=== PATIENT | male | born 1940 | race Native Hawaiian/Other Pacific Islander ===

== ENCOUNTER 2017-01-13 13:00 | Inpatient (IN) | payer OTHER ==
[~2017-01-13] VITALS: Ht 176.5 cm; Wt 53.3 kg
[~2017-01-13 13:00] MED LIST: ADVAIR HF2 IN; ALBU90AE13 INH; AMIO200T14 PO; ASA LOW DOSE81 MG PO; ATROVENT NAS0.06 %; CARV6.25 PO; CETIRIZINE5 MG PO; DIGOXIN0.25 MG PO; DILTIAZEM HCL120 M2 PO; DILTIAZEM240 M1 PO; DOCU100C10 PO; FLOVENT HFA110 MCG IN; IMDUR30 MG PO; LIPITOR10 MG PO; LISI5TAB10 PO; NEXIUM40 M1 PO; PILOCARPINE5 MG PO; TIOTCAP2 INH; TUDORZA PR400 MG/ACT IN; WARF4TAB7 PO; WARF7.5T5 PO; WARFARIN5 MG PO
[2017-01-13 21:57] VITALS: BP 139/66; TEMP 98.2; Ht 176.5 cm; Wt 53.3 kg
[2017-01-14 06:55] LABS: PLATELET COUNT 394 K/uL (142-355)
[2017-01-14 07:51] LABS: POTASSIUM 4.5 mmol/L (3.6-5.2); SODIUM 133 mmol/L (136-145)
[2017-01-14 08:00] VITALS: BP 130/50; TEMP 97.8
[2017-01-14 08:00] LABS: PARTIAL THROMBOPLASTIN TIME 26.1 SECONDS (24.5-33.6)
[2017-01-14 08:10] VITALS: BP 110/48
[2017-01-14 20:12] VITALS: BP 134/71; TEMP 97.8
[2017-01-15 07:59] VITALS: BP 131/65; TEMP 98.1
[2017-01-15 20:28] VITALS: BP 149/74; TEMP 98.1
[2017-01-16 08:00] VITALS: BP 107/57; TEMP 98
[2017-01-16 20:00] VITALS: BP 133/67; TEMP 97.9
[2017-01-17 08:00] VITALS: BP 109/58; TEMP 98
[2017-01-17 20:09] VITALS: BP 158/63; TEMP 98.1
[2017-01-18 08:00] VITALS: BP 129/70; TEMP 97.9
[2017-01-18 20:00] VITALS: BP 123/60; TEMP 98.1
[2017-01-19 08:00] VITALS: BP 111/58; TEMP 98.6
[2017-01-19 20:36] VITALS: BP 104/50; TEMP 97.8
[2017-01-20 08:00] VITALS: BP 106/52; TEMP 97.8
[2017-01-20 20:19] VITALS: BP 124/65; TEMP 98
[2017-01-21 04:33] LABS: PLATELET COUNT 329 K/uL (142-355)
[2017-01-21 05:02] LABS: PARTIAL THROMBOPLASTIN TIME 27.2 SECONDS (24.5-33.6)
[2017-01-21 05:04] LABS: POTASSIUM 4.8 mmol/L (3.6-5.2); SODIUM 129 mmol/L (136-145)
[2017-01-21 20:00] VITALS: BP 115/61; TEMP 98.3
[2017-01-22 08:00] VITALS: BP 100/52; TEMP 97.9
[2017-01-22 20:00] VITALS: BP 125/62; TEMP 98.2
== END 2017-01-23 16:00 | disposition home or self-care (01) | DRG 641 ==
LOC: MED/SURG 13:00
PROVIDERS: ADMIT Family Medicine
DX: R62.7 Adult failure to thrive (principal); E46 Unspecified protein-calorie malnutrition; R53.1 Weakness; R13.12 Dysphagia, oropharyngeal phase; I10 Essential (primary) hypertension; E11.9 Type 2 diabetes mellitus without complications; Z86.73 Personal history of transient ischemic attack (TIA), and cerebral infarction without residual deficits; K31.84 Gastroparesis; F03.90 Unspecified dementia, unspecified severity, without behavioral disturbance, psychotic disturbance, mood disturbance, and anxiety; G47.09 Other insomnia; L89.212 Pressure ulcer of right hip, stage 2
CPT/HCPCS: 36415; 80053; 85027; 85610; 85730; 94760

== ENCOUNTER 2017-03-02 10:37 | Outpatient (CLI) | payer OTHER ==
[2017-03-02 12:54] LABS: PLATELET COUNT 238 K/uL (142-355)
== END 2017-03-02 19:26 | disposition home or self-care (01) ==
LOC: LABW 10:37
PROVIDERS: Nurse Practitioner
DX: Z01.818 Encounter for other preprocedural examination (principal); Z51.81 Encounter for therapeutic drug level monitoring
CPT/HCPCS: 36415; 81000; 85027; 85610; 87070

== ENCOUNTER 2017-09-24 13:10 | Emergency (ER) | payer OTHER ==
[~2017-09-24] VITALS: Ht 167.6 cm; Wt 62.6 kg
[2017-09-24 14:45] LABS: PLATELET COUNT 387 K/uL (142-355)
[2017-09-24 14:58] LABS: PARTIAL THROMBOPLASTIN TIME 25.6 SECONDS (24.5-33.6); POTASSIUM 3.2 mmol/L (3.6-5.2); SODIUM 135 mmol/L (136-145)
[2017-09-24 17:10] VITALS: TEMP 98.2
[2017-09-24 17:20] VITALS: BP 180/84
[2017-09-29] MEDS ORDERED: DULCOLAX5 MG PO (17:24)
[2017-09-29] MEDS ORDERED: DONE5TAB PO (17:25)
[2017-09-29] MEDS ORDERED: CLOP75TA2 PO (17:25)
[2017-09-29] MEDS ORDERED: ISOSORB MONO10 MG PO (17:28)
[2017-09-29] MEDS ORDERED: PRAVACHOL20 MG PO (17:29)
[2017-09-29] MEDS ORDERED: BUDE1AER5 INH (17:30)
== END 2017-09-24 18:22 | disposition home or self-care (01) ==
LOC: ED 13:14
PROVIDERS: Specialist
DX: F03.90 Unspecified dementia, unspecified severity, without behavioral disturbance, psychotic disturbance, mood disturbance, and anxiety (principal); R46.89 Other symptoms and signs involving appearance and behavior; R00.0 Tachycardia, unspecified; I48.91 Unspecified atrial fibrillation
CPT/HCPCS: 36415; 80053; 81000; 83735; 84484; 85027; 85610; 85730; 93005; 96372; 99283; J3486; J7040

== ENCOUNTER 2017-09-30 00:20 | Inpatient (IN) | payer OTHER ==
[~2017-09-30] VITALS: Ht 180.3 cm; Wt 61.2 kg
[2017-09-30] VITALS (57 sets, daily range): BP systolic 73–116; BP diastolic 39–80; TEMP 97–100.2; Ht 180.3 cm; Wt 61.2 kg
[~2017-09-30 00:20] MED LIST changes: +BUDE1AER5 INH; +CLOP75TA2 PO; +DONE5TAB PO; +DULCOLAX5 MG PO; +ISOSORB MONO10 MG PO; +PRAVACHOL20 MG PO
--- NOTE | 2017-09-30 00:20 | NUR ---
RCD PT FROM [facility] VIA [facility] CHAIR DR DEMPSEY IN ATTENDENCE. 1225 PLACED IN BED ATTACHED TO MONITOR AFIB RVR 130 O2 ON BIPAP 50% i 10E5 RR28 FINGERS,TOES CYANOTIC COLD R INDEX FINGER AMP TO 1ST JOINT 0035 20G STARTED R WRIST X1 BP 85/39 LAB MARY BLOOD 0040BP 82/50REMAINS ON BIPAP 0042 CARDIZEM 20 IVSP 0045CARDIZEM GTT STARTED AT 10MG 0047 CARDIZEM 20MG REPEATED 0048 CARDIZEM GTT INCREASED 15 MG BP 76/44 0100 VIRK CATH 18G STARTED URINE CLOUDY FOUL SMELLIN SPEC TO LAB BP89/[address] ROSELYN FIELDS ANTI COAG STATED "NOT NOW" [address] DEMPSEY CAME WROTE ORDERS 0120 20G STARTED INR HAND XI BP96/45 0130 CHEST XRAY DONE BP 101/47,ABG DRAWN BY RT HR 147 0200 RESTING BIPAP MAINTAINED LUNGS DIMINISHED BP 97/61 124 0330 CARDIZEM CONT 15 MG ALERT RESTING 0400BIPAP IN PLACE O2 SAT 95%
[2017-09-30 00:50] LABS: PLATELET COUNT 403 K/uL (142-355)
[2017-09-30 01:03] LABS: POTASSIUM 4.2 mmol/L (3.6-5.2)
[2017-09-30] MEDS ORDERED: PROTONIX20 MG PEG (04:20)
--- NOTE | 2017-09-30 04:30 | NUR ---
RESTING BP 77/57 CARDIZEM AT 15 MG
[2017-09-30 06:57] LABS: PLATELET COUNT 328 K/uL (142-355)
[2017-09-30 07:10] LABS: POTASSIUM 3.9 mmol/L (3.6-5.2)
--- NOTE | 2017-09-30 08:23 | NUR ---
DR DEMPSEY VISITED CHECKED PT RECIEVED ORDERS. OBTAINED EKG, ABG, OBTAINED URINE FROM VIRK CATH FOR LAB. IV BOLUS AT 250 ML HR. CARDIZEM AT 15 ML HR. HR 120 A FIB.
--- NOTE | 2017-09-30 08:40 | NUR ---
DR WALTON VISITED CHECKED PT. RESP DEPT HERE ECHO IN PROGRESS PT RECIEVED 250 ML BOLUS ORDERED. CARDIZEM DRIP STOPPED WILL START AMARODONE ORDERED.
--- NOTE | 2017-09-30 11:30 | NUR ---
SPOKE WITH PTS DAUGHTER, GIVEN UPDATE ON PTS STATUS. DAUGHTER STATES THAT PT HAS NOT HAS HIS MEDS IN 4WEEKS AND HAS A HX OF AFIB. HE HAS ONLY BEEN BACK WITH HER SINCE LAST
[2017-09-30 13:38] LABS: PARTIAL THROMBOPLASTIN TIME 32.7 SECONDS (24.5-33.6)
--- NOTE | 2017-09-30 17:46 | NUR ---
NOTE URINE OUTPUT THIS SHIFT 75 ML DARK URINE PT RECIEVED LASIX 20 MG. THIS SHIFT. IV FLUIDS CONTINUE AT 150 ML HR. REPORT TO HADRY ASCENCIO LIP CUTTER AND SCORER NO NEW ORDERS AT THIS TIME CONTINUE TO MONITOR PT. WILL CHECK LABS AND CHEST X RAY IN AM.
--- NOTE | 2017-09-30 18:49 | NUR ---
PT AROUSES TO VERBAL STIMULI. SULLY TO CYNTHIA. IV SITE X2 PATENT. AMIODARONE GTT @16.6ML/HR INFUSING W/O DIFF. NS @150ML/HR INFUSING. PT HAS NOT BEEN COMBATIVE DURING THIS SHIFT, PT HAS REMAINED CALM
--- NOTE | 2017-09-30 19:30 | NUR ---
RECEIVED PATIENT LAYING IN SUPINE POSITION. PATIENT IS ALERT TO PERSON AND IS ABLE TO FOLLOW COMMANDS WHEN ASCULTATING LUNG SOUNDS. RHONCI NOTED IN THE UPPER AND MID LOBES, CLEAR ON THE LEFT LOWER LOBE AND DIMINSHED ON THE RIGHT LOWER LOBE. PRODUCTIVE COUGH NOTED. PATIENT IS ON ROOM AIR WITH SPO2 AT 95%. HR REMAINS IRREGULAR IN A-FIB WITH OCCASIONAL PVC AND HR RANGING 95-140 BPM. PATIENT DENIES ANY PAIN AT PRESENT TIME. IV 20G NOTED TO THE LEFT HAND INFUSING AMIODARONE 16.6 ML/HR WITH NO S/S OF INFILTRATION NOTED. IV 20G TO THE LEFT HAND SALINE LOCK WITH NO S/S OF INFILTRATION NOTED FLUSHED WITHOUT DIFFICULTY.IV 22G NOTED TO THE LEFT ANTECUBITAL INFUSING NS AT 150 ML/HR WITH NO SIGNS OF INFILTRATION NOTED. PATIENT HAS MULTIPLE BRUSING NOTED IN DIFFERENT STAGES OF HEALING NOTED IN THE UPPER EXTREMITIES. VIRK CATHETER NOTED DRAINING TO THE BEDSIDE WITH NO URINE NOTED IN BAG. BED IS LOCKED IN LOW POSITION, SIDERAILS X 2,CALL HU WITHIN REACH.
--- NOTE | 2017-09-30 20:10 | NUR ---
BLOOD DRAW FOR CARDIAC ENZYMES DONE AT THIS TIME.
--- NOTE | 2017-09-30 20:11 | NUR ---
DAUGHTER HERE TO SEE PATIENT.
--- NOTE | 2017-09-30 21:07 | NUR ---
PATIENT SAT IN HIGH FOWLERS POSTION AND OFFERED WATER TO ASSESS IF PATIENT WAS ABLE TO TAKE PO MEDS FOR TONIGHT. PATIENT IS ALERT BUT REFUSED PO MEDICATIONS WELL WATER OR JUICE. PATIENT STATED " NO, I DON'T TAKE ANY MEDS". PATIENT ASKED AGAIN BUT PATIENT A LITTLE AGITATED STATED " I JUST TOLD YOU I DON'T TAKE ANY MEDS". PATIENT THEN INFORMED I WAS GOING TO TAKE HIM A BATH PATIENT STATED " I TOOK A BATH YESTERADAY", ASKED PATIENT IF IT WAS OK IF I COULD TAKE HIM ANOTHER BATH TONIGHT PATIENT STATED IN LOUDER TONE "I TOLD I TOOK ONE YESTERDAY". PATIENT PLACED BACK IN SEMI-FOWLERS POSITION. WILL CONTINUE TO MONITOR.
--- NOTE | 2017-09-30 22:29 | NUR ---
PATIENT REPOSITIONED SELF ON HIS LEFT SIDE. WILL CONTINUE TO MONITOR.
[2017-10-01] VITALS (42 sets, daily range): BP systolic 85–137; BP diastolic 43–98; TEMP 97.8–98.8
--- NOTE | 2017-10-01 01:49 | NUR ---
PATIENT NOTED REMOVING PULSE OX LEAD FROM FINGER. PATIENT REDIRECTED WITH REPEAT VERBAL INSTRUCTION. PATIENT ALLOWED SURVEY DIRECTOR TO PLACE PULSE OX BACK ON FINGER. PATIENT OFFERED FLUIDS TO DRINK IN WHICH PATIENT STATED " I WOULD LIKE A SPRITE". PATIENT ABLE TO HOLD CAN AND TAKE FLUIDS ON HIS OWN. PATIENT TOOK IN 4OZ WITHOUT DIFFICULTY.
--- NOTE | 2017-10-01 04:36 | NUR ---
PATIENT ENGAGES IN CONVERSATION. SPEECH IS SLIGHTLY GARBLED BUT UNDERSTANDABLE PATIENT REPORTS TIP OF THE TONGUE WAS PARTIALLY REMOVED. PATIENT ABLE TO TAKE FLUIDS WITHOUT DIFFICULTY. PATIENT REPORTS NO PAIN PRESENT TIME. PATIENT REMAINS IN AFIB WITH RVRS 126-155 ON AMIODARONE DRIP AT 16.6 ML/HR.
--- NOTE | 2017-10-01 06:00 | NUR ---
PATIENT GIVEN PARTIAL BATH GIVEN BUT WOULD NOT ALLOW LINEN CHANGE. DRESSING TO THE LEFT ARM CHANGED NO DRAINAGE NOTED. SUTURE INTACT. GEMMA APPLIED AND SECURED WITH TAPE.
[2017-10-01 06:21] LABS: POTASSIUM 3.2 mmol/L (3.6-5.2)
[2017-10-01 06:55] LABS: PLATELET COUNT 343 K/uL (142-355)
--- NOTE | 2017-10-01 08:30 | NUR ---
DR WALTON AND HARDY/CAROL IN TO SEE PT
--- NOTE | 2017-10-01 10:45 | NUR ---
LINDA/TUBE DRAWER FROM [facility] IN TO SEE PT.
--- NOTE | 2017-10-01 13:00 | NUR ---
PT PULLED OUT HIS IV, POTASSIUM HAD TO BE STOPPED UNTIL ANOTHER OTHER INTRAVENOUS LINE WAS INSERTED
--- NOTE | 2017-10-01 13:25 | NUR ---
HR 125-155, CONT IN A-FIB, INCREASED CARDIZEM 7MG/HR
--- NOTE | 2017-10-01 14:17 | NUR ---
INCREASED CARDIZEM 10MG/HR
--- NOTE | 2017-10-01 18:31 | NUR ---
PATIENTS MENTAL STATUS IS ALTERED, STATED HE WAS IN THE [place] AND HIS FAMILY DID NOT NO HIS WHERABOUTS. REASURRED PATIENT HE WAS IN THE ICU IN [place]. PT IS IRRITABLE, AND THREATENS TO STRIKE. PTS TWO IV'S PATENT AND INTACT. VIRK DRAINING YELLOW URINE WITH SEDIMENT.
--- NOTE | 2017-10-01 21:14 | NUR ---
10/01/17 AT 2100PT REFUSES TO LET STAFF TAKE HIS TEMP ORALLY OR UNDER THE ARM, ALSO REFUSES TO LET CIRCULAR SHEAR OPERATOR AUSCULTATE HIS LUNGS AND BOWEL SOUNDS. YELLS "NO" LOUDLY EVEN AFTER EXPLAINING WHY THESE THINGS NEED TO BE DONE.
--- NOTE | 2017-10-01 23:01 | NUR ---
PT REMAINS CONFUSED, WANTS TO GET UP OUT OF BED AND LEAVE, RAISES VOICE AT STAFF, REOIRENTED PT NEEDED. PT TRYING TO THROW HIS LEG OVER BED RAIL TO GET UP AND LEAVE. EXPLAINED TO PT THAT HE IS SICK AND AT HOSPITAL. SOFT WRIST RESTRAINTS REMAIN INTACT TO BOTH WRIST WITH NO PROBLEMS NOTED, STAFF REMAIN AT BEDSIDE, WILL MONITOR CLOSELY, RAILS UP X4, CALL LIGHT IN REACH, BED IN LOW POSITION.
--- NOTE | 2017-10-01 23:04 | NUR ---
10/01/[address] WALLS ABOUT GETTING ORDER FOR BILATERAL SOFT WRIST RESTRAINTS. PT PULLING AT B/P TUBING, PULLING OFF HEART MONITOR LEADS, YELLING AT STAFF, NONCOMPLIANT, IV SITE WILL NOT RUN DUE TO PT KEEPING ARM BENT UP. ATTEMPTED TO TALK WITH PT, REORIENTED MULTIPLE TIMES(REMAINS CONFUSED), ADDRESSED PHYSICAL NEEDS AND FOOD/HYDRATION NEEDS, DIVERSION ACTIVITY(TV ON), DECREASED STIMULI, STAFF REMAINED AT BEDSIDE WITH PT. NO CHANGE IN PT'S STATUS. WRITTEN ORDER OBTAINED AT THIS TIME FROM DR. WALLS FOR BILATERALL SOFT WRIST RESTRAINTS.
--- NOTE | 2017-10-01 23:16 | NUR ---
10/01/17 AT 1999EXPLAINED RESTRAINTS AND REASON FOR THEM TO PT, PT REMAINS CONFUSED. APPLIED BILATERAL SOFT WRIST RESTRAINTS AT THIS TIME. WILL MONITOR CLOSELY, RAILS UP X4, CALL LIGHT IN REACH, BED IN LOW POSITION.
--- NOTE | 2017-10-01 23:19 | NUR ---
10/01/17 AT 2024FAMILY AT BEDSIDE WITH PT, PT WILL NOT ALLOW DIRECTOR OF HOTEL OPERATIONS OR FAMILY MEMBER TAKE IS TEMP ORALLY OR UNDER HIS ARM. RAISES VOICE AND YELLS NO AT STAFF.
--- NOTE | 2017-10-01 23:21 | NUR ---
PT ALLOWED SERVICE ATTENDANT TO AUSCULTATE LUNG SOUNDS AND BOWEL SOUNDS AT THIS TIME. STILL REFUSES TO LET STAFF TAKE HIS TEMP.
[2017-10-02] VITALS (41 sets, daily range): BP systolic 101–150; BP diastolic 45–87; TEMP 97.6–99
--- NOTE | 2017-10-02 02:57 | NUR ---
10/02/17 AT 0110DECREASED CARDIZEM DRIP TO 5ML/HR(WAS AT 10), WILL CONTINUE TO MONITOR CLOSELY. SOFT WRIST RESTRAINTS REMAIN INTACT BILATERALLY WITH NO PROBLEMS NOTED, PT REMAINS CONFUSED AND REORIENTED NEEDED. STATES HE IS NOT AT THE HOSPITAL. RAILS UP X4, CALL LIGHT IN REACH, BED IN LOW POSITION.
--- NOTE | 2017-10-02 04:48 | NUR ---
PT CONTINUES TO LAY AWAKE IN BED, MUMBLING MOST OF THE TIME, REMAINS UNCOOPERATIVE WITH STAFF, WILL NOT ALLOW STAFF TO TAKE HIS TEMP YELLS HE DOES NOT HAVE A FEVER, WHEN ASKED PT DOES NOT WANT ANYTHING TO DRINK OR EAT, YELLS AT STAFF LOUDLY WHEN HE IS TOUCHED, BILATERAL SOFT WRIST RESTRAINTS REMAIN IN USE WITH NO PROBLEMS NOTED. PT HAS NOT SLEPT BUT ABOUT 1 HOUR DURING THE NIGHT. STAFF REMAIN AT BEDSIDE TO MONITOR CLOSELY, RAILS UP X4, CALL LIGHT IN REACH, BED IN LOW POSITION.
--- NOTE | 2017-10-02 04:52 | NUR ---
NOTE PT HAS WET, LOOSE SOUNDING COUGH AT TIMES. NONPRODUCTIVE.
--- NOTE | 2017-10-02 06:52 | NUR ---
10/02/17 AT [address] STAFF MEMBERS UNABLE TO GET MORNING LAB WORK, PT REMAINS IN SOFT WRIST RESTAINTS BUT YELLS LOUDLY AND CURSES AT STAFF, KICKING AT STAFF, ATTEMPTED TO REORIENT PT AND CALM HIM. WILL CONTINUE TO MONITOR CLOSELY, RAILS UP X4, CALL LIGHT IN REACH, BED IN LOW POSITION.
--- NOTE | 2017-10-02 09:36 | NUR ---
PT COMBATIVE AND HOLLERING OUT AT THIS TIME
--- NOTE | 2017-10-02 09:42 | NUR ---
PT COMBATIVE AND HOLLERING OUT. ATIVAN 2 MG IV ADMINISTERED AT THIS TIME. WILL CONTINUE TO MONITOR.
--- NOTE | 2017-10-02 10:00 | NUR ---
DR. WALTON AT BEDSIDE TO SEE PATIENT
--- NOTE | 2017-10-02 10:08 | NUR ---
CARDIZEM DRIP INCREASED TO 10 MCG/HOUR
[2017-10-02 11:26] LABS: PLATELET COUNT 316 K/uL (142-355)
[2017-10-02 11:44] LABS: POTASSIUM 3.6 mmol/L (3.6-5.2)
--- NOTE | 2017-10-02 16:53 | NUR ---
CARDIZEM DRIP DECREASED TO 5 MCG/HOUR
--- NOTE | 2017-10-02 17:45 | NUR ---
NOTICED SOME DIRED MUCUS TO BACK OF PT'S THROAT. MOUTH WASH DONE AT THIS TIME AND SUCTIONING WITH YAUNKER. SPUTUM WAS COLLECTED AND SENT TO LAB. PT TOLERATED WELL.
--- NOTE | 2017-10-02 18:13 | NUR ---
INFORMED DR WALTON OF PTS CHEST X RAY AND BNP.
--- NOTE | 2017-10-02 19:51 | NUR ---
PM ASSESSMENT COMPLETED. PT BREATHING AT 20 TO 24 TIMES PER MINUTE. PT IS A 77 YEAR OLD MALE ADMITTED WITH ATRIAL FIBRILLATION WITH RAPID RESPONSE AND HYPOTENTION. PT IS ON A CARDIZEM DRIP AT 5 MG/ML.
--- NOTE | 2017-10-02 22:32 | NUR ---
REPOSITIONED PT UP IN BED. PT O2 SAT IS 96 PERCENT. PT DOES HAVE AUDIBLE CONGESTION.
--- NOTE | 2017-10-02 23:16 | NUR ---
REPOSITIONED IN BED TURNED PT TO HIS LEFT SIDE. HEAD OF BED ELEVATED. PT WITH AUDIBLE CONGESTION. RESP SUCTIONED PT ORALLY USING YANKAUER. PT DRY AND NO SECRETIONS OBTAINED.
[2017-10-03] VITALS (35 sets, daily range): BP systolic 75–121; BP diastolic 31–77; TEMP 97.8–99.9
--- NOTE | 2017-10-03 00:30 | NUR ---
RESP HERE AND RESP TREATMENT GIVEN PER MASK.
--- NOTE | 2017-10-03 01:06 | NUR ---
PT WAS GIVEN ATIVAN 1 MG IVSP FOR AGITATION. PT SHAKING AND GROANING WITH MOVEMENT .
--- NOTE | 2017-10-03 03:29 | NUR ---
ORAL CARE GIVEN. SUCTIONED ORAL. THICK GREEN MUCUS SECETIONS OBTAINED.
--- NOTE | 2017-10-03 04:51 | NUR ---
REPOSITIONED TO RIGHT SIDE. ORAL CARE GIVEN.
--- NOTE | 2017-10-03 06:00 | NUR ---
PT WAS BATHED. LABS WERE DRAWN. BP DECREASING. DR. WALTON PRESENT. O2 SATS 90-98. PT WITH VENTI MASK AT 50 PERCENT. LEVOPHED AT 2MCG INFUSING AT 2ML. NEW ORDERS RECEIVED. CONSULT WITH DR. HYATT.
[2017-10-03 06:38] LABS: PLATELET COUNT 311 K/uL (142-355)
--- NOTE | 2017-10-03 06:50 | NUR ---
RADIOLOGY HERE FOR CXR.
--- NOTE | 2017-10-03 06:52 | NUR ---
PT WITH BP 81/43,HR 90,AFIB O2 SAT 89% ON 50 % VENTI MASK. DR WALTON AT BS. PT NON RESPONSIVE TO STERNAL RUB.NEW ORDERS.
[2017-10-03 06:55] LABS: POTASSIUM 3.9 mmol/L (3.6-5.2)
--- NOTE | 2017-10-03 07:11 | NUR ---
NOREPI DRIP STARTED PER DR'S ORDER AT 2MCG/MIN PER DR'S ORDER.DR WALTON HERE REVIEWING LABS.
--- NOTE | 2017-10-03 09:20 | NUR ---
PT WITH LOW BP 78/48,O2 SATS DECREASED TO 83%.LEVOPHED DRIP INCREASED TO 4MCG. JAIME PATEL APRN NOTIFIED & IN TO SEE PT. NS BOLUS STARTED AT 0928,FAMILY,DAUGHTER SONY NOTIFIED PER BRANDAN LIZAMA RN.O2 SATS 88%. O932 DR AMPARFUL IN TO SEE PT.NS BOLUS STIPPED,NS DECREASED TO 150 ML/HR. 0940ABG RESULTS TO JAIME PATEL APRN & DR KENDY. 0955 PT PLACED ON BIPAP 20/5 & 60% O2, PT REMAINS NON RESPONSIVE TO STIMULI. 0957 BP 72/36,LEVOPHED DRIP INCREASED TO 6MCG,GERALD MARSH LPN SCRIBE AT BS TALKING WITH DAUGHTER ABOUT PT'S CONDITION.
--- NOTE | 2017-10-03 10:05 | NUR ---
BP 80/32 P 76,RR 24 NOR EPI DRIP INCREASED TO 8 MCG.
--- NOTE | 2017-10-03 10:20 | NUR ---
JAIME PATEL EARLY CHILDHOOD COORDINATOR BACK IN TO CK ON PT. TALKING WITH FAMILY ABOUT MAKING A DECISION.
--- NOTE | 2017-10-03 10:43 | NUR ---
FAMILY BACK IN TO VISIT BP 75/36,HR 76,@1050INCREASED LEVOFED TO 10 MCG.
--- NOTE | 2017-10-03 11:15 | NUR ---
BP 70/39 ,HR 75, UNABLE TO MANUFACTURING SR ENGINEER AN O2 SAT, NEGRITA PATEL AWARE,FEET & LEGS BEGINNING TO MOTTLE. 1130 JAIME PATEL APRN BACK IN TO SEE PT.
--- NOTE | 2017-10-03 11:46 | NUR ---
FAMILY CONSENTED TO DNR,SIGNED & WITNESSED & PLACED ON CHART.
--- NOTE | 2017-10-03 12:26 | NUR ---
MULTIPLE FAMILY MEMBERS INTO VISIT WITH PT. PT REMAINS NON RESPONSIVE, PT ON BIPAP. BP 77/32,HR 78.
--- NOTE | 2017-10-03 13:14 | NUR ---
FAMILY IN AT BS, AIRFRAME AND POWERPLANT MECHANIC IN TALKING WITH FAMILY. HR 77,BP 85/37.
--- NOTE | 2017-10-03 14:10 | NUR ---
IMMEDIATE FAMILY IN AT BS. CARE & COMFORT ORDERED ONLY. LEVOPHED DRIP STOPPED.BIPAP OFF PER RESPIRATORY THERAPY. PT PLACED ON O2 AT 2L/NC. PT WARM TO TOUCH,PALE,DOES NOT RESPOND TO TOUCH OR STIMULI. VIRK TO BSD WITH LESS THAN 50 CC DK YELLOW URINE IN BAG. JAIME PATEL APRN & GERALD MARSH IMPLEMENTATION PROJECT MANAGER/SCRIBE IN AT BS.
--- NOTE | 2017-10-03 14:13 | NUR ---
HR DECREASED TO 68, PT WITHAGONAL TYPE RESP EFFORT,O2 SAT WILL NOT GAS PRODUCER. 1414 HR DOWN TO 48 BPM,FAMILY AT BS. 1418 HR DOWN TO 39. 1424 NO RESP EFFORT.N NOTED HR. JAIME PATEL APRN AT BS TO CK FOR PULSE. [address] LARRY AT BS,PRONOUNCED PT. FAMILY AWARE.
--- NOTE | 2017-10-03 15:00 | NUR ---
[facility] NOTIFIED. POSTMORTEM CARE.
--- NOTE | 2017-10-03 15:22 | NUR ---
[facility] CALLED BACK,PT NOT SUITABLE.
--- NOTE | 2017-10-03 15:30 | NUR ---
CLOTHES AT BS SLEEPING PANTS,BOXERS ,TSHIRT,A LONGS SLEEVE SHIRT & 1 pair of GLASSES RELEASED TO DAUGHTER TAISHA SOLISON
--- NOTE | 2017-10-03 15:37 | NUR ---
FAMILY BACK IN AFTER POST MORTEM CARE.
--- NOTE | 2017-10-03 15:40 | NUR ---
PT BELONGINGS OBTAINED FROM [facility] PER TAR MARSH WERE 1 PAIR PRESCRIPTION GLASSES.1 SET OF KEYS WITH 2 KEYS, 1 SILVER COLORED SPOON RING,1 RED HANDLED POCKET KNIFE,$3.02 IN CHANGE & A NO BETTS VALVE COIN WER RETURNED TO THE EDUIN PAYAN PER GERALD MARSH CRUDE UNIT OPERATOR.
--- NOTE | 2017-10-03 16:03 | NUR ---
BODY RELEASED TO [facility].
--- NOTE | 2017-10-03 18:17 | NUR ---
PT TAKEN OFF BIPAP AT FAMILY REQUEST. PLACED ON 3 LNC. FAMILY AT BEDSIDE. CHARLES WU R.N., JAIME PATEL HOSPITALIST AND GERALD MARSH LPN ARE ALL IN ICU.
== END 2017-10-03 16:03 | disposition expired | DRG 308 ==
LOC: ICU 00:20
PROVIDERS: Emergency Medicine; ADMIT Specialist
PROC: 05HM33Z Insertion of Infusion Device into Right Internal Jugular Vein, Percutaneous Approach (ICD-10-PCS; principal; 2017-10-03)
PROC: B543ZZA Ultrasonography of Right Jugular Veins, Guidance (ICD-10-PCS; 2017-10-03)
DX: I48.91 Unspecified atrial fibrillation (principal); J18.8 Other pneumonia, unspecified organism; M62.82 Rhabdomyolysis; I82.890 Acute embolism and thrombosis of other specified veins; R00.0 Tachycardia, unspecified; S51.811A Laceration without foreign body of right forearm, initial encounter; F03.90 Unspecified dementia, unspecified severity, without behavioral disturbance, psychotic disturbance, mood disturbance, and anxiety; F32.89 Other specified depressive episodes; I10 Essential (primary) hypertension; K70.0 Alcoholic fatty liver; J44.9 Chronic obstructive pulmonary disease, unspecified; I95.89 Other hypotension; R06.82 Tachypnea, not elsewhere classified
CPT/HCPCS: 36415; 36600; 80053; 81000; 82550; 82553; 82570; 82805; 83605; 83735; 83880; 84100; 84133; 84300; 84484; 84540; 85007; 85027; 85379; 85610; 85730; 87070; 87077; 87186; 87205; 93005; 93306; 94640; 94664; 94760; 96372; J0282; J0696; J1160; J1650; J1940; J2060; J3475; J3490; P9047